=== PATIENT | male | born 1970 ===

== ENCOUNTER 2021-08-11 17:14 | Emergency (ER) | payer OTHER ==
[~2021-08-11] VITALS: Ht 172.7 cm; Wt 75.0 kg
[2021-08-11 17:45] VITALS: BP 150/101
[2021-08-11] MEDS ORDERED: CEPHALEXIN500 MG PO (17:45)
[2021-08-11 18:00] VITALS: BP 144/94
[2021-08-11 18:14] VITALS: BP 146/95
[2021-08-11 18:41] VITALS: BP 146/95
== END 2021-08-11 18:56 | disposition home or self-care (01) | DRG 605 ==
LOC: ED 17:14
PROC: 0JQJ3ZZ Repair Right Hand Subcutaneous Tissue and Fascia, Percutaneous Approach (ICD-10-PCS; principal; 2021-08-11)
DX: S61.216A Laceration without foreign body of right little finger without damage to nail, initial encounter (principal); W26.8XXA Contact with other sharp object(s), not elsewhere classified, initial encounter; Y93.E9 Activity, other interior property and clothing maintenance